=== PATIENT | male | born 1955 | race Caucasian/White ===

== ENCOUNTER 2018-04-19 09:28 | Emergency (ER) | payer OTHER ==
[2018-04-19] MEDS ORDERED: METHYLPREDNISOLONE SOD SUCC 125MG/2ML VIAL ONE (10:03)
[2018-04-19] MEDS ORDERED: SODIUM CHLORIDE 0.9% 500ML 500 ML IV ONE (10:04)
[2018-04-19] MEDS ORDERED: IPRATROPIUM/ALBUTEROL SULFATE 3 ML SOLUTION IH ONE (10:05)
[2018-04-19 10:18] LABS: BASOPHILS % (AUTO) 0.6 % (0.0-5.0); EOSINOPHILS % (AUTO) 1.1 % (0.0-8.0); HEMATOCRIT 46.9 % (42-54); LYMPHOCYTES % (AUTO) 23.8 % (21.0-51.0); MEAN CORPUSCULAR HEMOGLOBIN 31.1 pg (27.0-33.0); MEAN CORPUSCULAR HGB CONC 33.7 g/dL (32.0-36.0); MEAN CORPUSCULAR VOLUME 92.3 fL (79-99); MONOCYTES % (AUTO) 6.7 % (3.0-13.0); NEUTROPHILS % (AUTO) 67.8 % (40.0-77.0); NUCLEATED RED BLOOD CELLS 0.1 % (0.0-0.19); PLATELET COUNT (AUTO) 194 K/uL (130-400); RED BLOOD CELL COUNT(AUTO) 5.08 MIL/uL (4.50-6.20); RED CELL DISTRIBUTION WIDTH 13.4 % (11.0-15.5); WHITE BLOOD COUNT (AUTO) 10.4 K/uL (4.8-10.8)
[2018-04-19 10:29] LABS: POTASSIUM 3.8 mmol/L (3.5-5.1)
[2018-04-19 10:34] LABS: ALBUMIN 3.5 g/dL (3.5-5.0); BILIRUBIN,TOTAL 0.6 mg/dL (0.2-1.0); TOTAL PROTEIN, SERUM 7.4 g/dL (6.0-8.3)
[2018-04-19] MEDS ORDERED: IPRATROPIUM 0.5 MG/2.5 ML INH IH ONE (11:14)
[2018-04-19] MEDS ORDERED: ALBUTEROL SULFATE 0.083% 2.5 MG/3 ML INH IH ONE (11:14)
[2018-04-19] MEDS ORDERED: INSULIN HUMULIN R 100 UNIT/ML 3ML ONE (12:03)
== END 2018-04-19 12:32 | disposition home or self-care (01) ==
LOC: EDH 09:28
DX: J44.1 Chronic obstructive pulmonary disease with (acute) exacerbation (principal); Z87.891 Personal history of nicotine dependence
CPT/HCPCS: 36415; 71046; 80053; 85025; 93005; 94640 ×2; 96374; 96375; 99284; J1815; J2930; J7040